=== PATIENT | female | born 1980 | race Caucasian/White ===

== ENCOUNTER 2016-12-25 15:47 | Emergency (ER) | payer MEDICARE, MEDICAID ==
[~2016-12-25 15:47] MED LIST: ALBUTEROL0.09 MG/A4 IH; BIRTH CONTROL PILL PO; BUSPIRONE; CLONAZEPAM1 M1 PO; CYCLOBENZAPRINE10 M1 PO; DIFLUCAN150 M1 PO; EFFEXOR XR150 M1 PO; FLEXERIL 1010 MG/TAB PO; FLOVENT DI100 MCG/Ac IH; INCIVEK375 MG PO; KETOROLAC TROME10 MG PO; METRONIDAZOLE500 M1 PO; NAPROXEN220 MG PO; NITROSTAT0.4 MG/TAB SL; NORCO 325 MG-51 TAB PO; ORPHENADRINE C100 MG PO; OXYCODONE HCL10 M1 PO; OXYCONTIN10 M1 PO; PEGASYS180 MCG/0. MR; PROZAC20 M1 PO; RIBAVIRIN200 MG PO; RIBOFLAVIN PO; RIFAMPIN 3300 MG/CAP PO; SEROQUEL25 MG PO; ULTRAM 50MG TAB50 MG PO; ULTRAM50 M1 PO; VALIUM5 M1 PO; ZOLOFT100 MG PO; ZOLOFT25 MG PO; [UNRECOGNIZED DRUG - OTHER] SC; [UNRECOGNIZED DRUG - REMARK]; [UNRECOGNIZED DRUG - REMARK]
[2016-12-25] MEDS ORDERED: NORCO 325 MG-51 TAB PO (19:24)
[2016-12-25 19:30] VITALS: BP 108/74
[2016-12-26] MEDS ORDERED: OMEPRAZOLE D/R20 MG PO (20:17)
== END 2016-12-25 19:32 | disposition home or self-care (01) ==
LOC: ED 15:47
DX: R07.1 Chest pain on breathing (principal); F17.210 Nicotine dependence, cigarettes, uncomplicated; I25.10 Atherosclerotic heart disease of native coronary artery without angina pectoris; Z95.0 Presence of cardiac pacemaker
CPT/HCPCS: J1885

== ENCOUNTER 2016-12-26 17:23 | Emergency (ER) | payer MEDICARE, MEDICAID ==
[2016-12-26] MEDS ORDERED: OMEPRAZOLE D/R20 MG PO (20:17)
[2016-12-26 20:44] VITALS: BP 114/65
== END 2016-12-26 20:44 | disposition home or self-care (01) ==
LOC: ED 17:23
DX: R07.1 Chest pain on breathing (principal); R10.13 Epigastric pain; F17.210 Nicotine dependence, cigarettes, uncomplicated; I25.10 Atherosclerotic heart disease of native coronary artery without angina pectoris; Z95.0 Presence of cardiac pacemaker
CPT/HCPCS: C9113; J1885; J2405

== ENCOUNTER 2017-10-04 05:56 | Emergency (ER) | payer MEDICARE, MEDICAID ==
[~2017-10-04] VITALS: Ht 162.6 cm; Wt 84.1 kg
[~2017-10-04 05:56] MED LIST changes: +AMOXIL500 M1 PO; +NAPROXEN250 M2 PO; +OMEPRAZOLE D/R20 MG PO
[2017-10-04 07:26] LABS: BASO # 0.1 (0.02-0.10); EOS # 0.4 (0.04-0.40); HEMATOCRIT 38.7 % (37.0-47.0); HEMOGLOBIN 13.3 g/dL (12.5-16.0); LYMPH# 3.5 (1.50-4.00); MEAN CELL VOLUME 92 fl (78-100); MEAN CORPUSCULAR HEMOGLOBIN 32 pg (27-31); MEAN CORPUSCULAR HGB CONC 34 g/dL (33-37); MEAN PLATELET VOLUME 8.1 fl (7.4-10.4); PLATELET COUNT 418 K/mm3 (130-400); RED BLOOD COUNT 4.19 M/mm3 (4.10-5.30); RED CELL DISTRIBUTION WIDTH 13.3 % (11.5-14.5); WHITE BLOOD COUNT 17.9 K/mm3 (4.8-10.8)
[2017-10-04 07:29] LABS: MONO # 1.6 (0.20-0.80); NEU # 12.3 (1.40-6.50)
[2017-10-04 08:31] LABS: ERYTHROCYTE SEDIMENTATION RATE 22 mm/hr (0-20)
[2017-10-04 09:08] LABS: URINE APPEARANCE CLOUDY; URINE BILIRUBIN NEGATIVE (NEGATIVE); URINE BLOOD NEGATIVE (NEGATIVE); URINE COLOR YELLOW; URINE GLUCOSE NEGATIVE (NEGATIVE); URINE KETONE 2+ (NEGATIVE); URINE LEUKOCYTE ESTERASE NEGATIVE (NEGATIVE); URINE NITRATE NEGATIVE (NEGATIVE); URINE PROTEIN(semi-quant) NEGATIVE (NEGATIVE); URINE UROBILINOGEN NORMAL (NORMAL); URINE WBC 0-1 /hpf (0-3)
[2017-10-04 09:09] LABS: URINE MUCUS PRESENT (NOT PRESENT)
[2017-10-04] MEDS ORDERED: CYCLOBENZAPRINE10 M1 PO (10:59)
[2017-10-04 11:20] VITALS: BP 132/55
== END 2017-10-04 11:58 | disposition home or self-care (01) ==
LOC: ED 05:56
PROVIDERS: Family Medicine; Nurse Practitioner Family
DX: M54.40 Lumbago with sciatica, unspecified side (principal); Z95.2 Presence of prosthetic heart valve; Z95.0 Presence of cardiac pacemaker; G89.29 Other chronic pain; B19.20 Unspecified viral hepatitis C without hepatic coma; F15.90 Other stimulant use, unspecified, uncomplicated; F12.90 Cannabis use, unspecified, uncomplicated; F11.90 Opioid use, unspecified, uncomplicated
CPT/HCPCS: J1885; J2060; J2360; Q9967

== ENCOUNTER 2017-10-05 04:32 | Emergency (ER) | payer MEDICARE, MEDICAID ==
[~2017-10-05] VITALS: Ht 162.6 cm; Wt 81.8 kg
[2017-10-05 06:14] LABS: HEMATOCRIT 38.1 % (37.0-47.0); HEMOGLOBIN 13.1 g/dL (12.5-16.0); MEAN CELL VOLUME 91 fl (78-100); MEAN CORPUSCULAR HEMOGLOBIN 31 pg (27-31); MEAN CORPUSCULAR HGB CONC 34 g/dL (33-37); MEAN PLATELET VOLUME 8.4 fl (7.4-10.4); PLATELET COUNT 467 K/mm3 (130-400); RED CELL DISTRIBUTION WIDTH 13.2 % (11.5-14.5)
[2017-10-05 06:29] LABS: LYMPHOCYTE 12 % (20-51); MONOCYTE 2 % (3-10); NEUTROPHILS 83 % (42-75)
[2017-10-05 07:24] LABS: CKMB ISOENZYME 6.2 ng/mL (0.6-3.5); TROPONIN-I < 0.03 ng/mL (0.00-0.06)
[2017-10-05 07:34] LABS: ALBUMIN 3.7 g/dL (3.5-5.0); BUN/CREATININE RATIO 42.5 (6.0-26.0); CALCIUM 9.5 mg/dL (8.4-10.2); POTASSIUM 4.4 mmol/L (3.6-5.0); TOTAL PROTEIN 7.2 g/dL (6.3-8.2)
[2017-10-05 08:15] LABS: URINE APPEARANCE HAZY; URINE BILIRUBIN NEGATIVE (NEGATIVE); URINE BLOOD NEGATIVE (NEGATIVE); URINE COLOR YELLOW; URINE GLUCOSE NEGATIVE (NEGATIVE); URINE KETONE 2+ (NEGATIVE); URINE LEUKOCYTE ESTERASE NEGATIVE (NEGATIVE); URINE NITRATE NEGATIVE (NEGATIVE); URINE PROTEIN(semi-quant) TRACE mg/dL (NEGATIVE); URINE UROBILINOGEN NORMAL (NORMAL); URINE WBC 0-1 /hpf (0-3)
[2017-10-05 08:16] LABS: URINE MUCUS PRESENT (NOT PRESENT)
[2017-10-05 15:57] VITALS: BP 139/82
== END 2017-10-05 17:20 | disposition short-term general hospital (02) ==
LOC: ED 04:32
PROVIDERS: Nurse Practitioner Primary Care
DX: M53.3 Sacrococcygeal disorders, not elsewhere classified (principal); D72.829 Elevated white blood cell count, unspecified; Z95.0 Presence of cardiac pacemaker; F15.10 Other stimulant abuse, uncomplicated; M62.830 Muscle spasm of back; F41.9 Anxiety disorder, unspecified; F32.9 Major depressive disorder, single episode, unspecified; B19.20 Unspecified viral hepatitis C without hepatic coma; F17.200 Nicotine dependence, unspecified, uncomplicated; Z91.81 History of falling
CPT/HCPCS: A4353; J1170; J1200; J2930; J3360

== ENCOUNTER 2017-10-22 19:48 | Outpatient (RCR) | payer MEDICARE, MEDICAID ==
[~2017-10-22] VITALS: Ht 162.6 cm; Wt 81.8 kg
[2017-10-22] MEDS ORDERED: ZOFRAN4 M2 PO (20:41)
[2017-10-22] MEDS ORDERED: GABAPENTIN400 M2 PO (20:41)
[2017-10-22 20:45] VITALS: BP 114/73
--- NOTE | 2017-10-22 21:00 | NUR ---
IM injections were given in divided doses in the ventrogluteal and vastuslateralus muscles. Pt tolerated well with no signs of adverse reaction noted prior to discharge. Pt ambulates out of facility to POV with friend.
[2017-10-22 21:02] VITALS: BP 129/56
[2017-10-23 19:22] VITALS: BP 130/80
--- NOTE | 2017-10-23 19:29 | NUR ---
FREQUENT MOVEMENTS OF FACIAL MUSCLES AND EXTREMITIES. HARD TIME HOLDING STILL FOR BP EVEN WHEN PROMPTED FREQUENTLY. ECCHYMOSIS NOTED TO RT CHEEKBONE. PATIENT STATES "I FELL DOWN THE STAIRS. WE HAVE TINY STAIRS."
[2017-10-23] MEDS ORDERED: MIRALAX17 GM PO (19:37)
[2017-10-23] MEDS ORDERED: CYCLOBENZAPRINE10 M1 PO (19:37)
[2017-10-24] MEDS ORDERED: CHANTIX START M1 TAB PO (17:34)
== END 2017-10-23 20:00 | disposition home or self-care (01) ==
LOC: AMSURD 19:48
DX: I33.0 Acute and subacute infective endocarditis (principal); B96.89 Other specified bacterial agents as the cause of diseases classified elsewhere
CPT/HCPCS: J0696; J1580

== ENCOUNTER 2017-10-23 19:35 | Emergency (ER) | payer MEDICARE, MEDICAID ==
[~2017-10-23] VITALS: Ht 162.6 cm; Wt 81.8 kg
[~2017-10-23 19:35] MED LIST changes: +GABAPENTIN400 M2 PO; +ZOFRAN4 M2 PO
[2017-10-23] MEDS ORDERED: CYCLOBENZAPRINE10 M1 PO (19:37)
[2017-10-23] MEDS ORDERED: MIRALAX17 GM PO (19:37)
[2017-10-23 21:42] LABS: BASO # 0.1 (0.02-0.10); EOS # 0.1 (0.04-0.40); EOS % 0.7 % (1.0-5.0); LYMPH# 2.7 (1.50-4.00); MEAN CELL VOLUME 94 fl (78-100); MEAN CORPUSCULAR HEMOGLOBIN 31 pg (27-31); MEAN CORPUSCULAR HGB CONC 33 g/dL (33-37); MEAN PLATELET VOLUME 8.6 fl (7.4-10.4); PLATELET COUNT 346 K/mm3 (130-400); RED BLOOD COUNT 3.18 M/mm3 (4.10-5.30); RED CELL DISTRIBUTION WIDTH 13.2 % (11.5-14.5); WHITE BLOOD COUNT 14.3 K/mm3 (4.8-10.8)
[2017-10-23 21:46] LABS: MONO # 1.7 (0.20-0.80); NEU # 9.8 (1.40-6.50)
[2017-10-23 22:45] LABS: ERYTHROCYTE SEDIMENTATION RATE 40 mm/hr (0-20)
[2017-10-23 23:04] LABS: URINE APPEARANCE HAZY; URINE BILIRUBIN NEGATIVE (NEGATIVE); URINE BLOOD TRACE (NEGATIVE); URINE COLOR YELLOW; URINE GLUCOSE NEGATIVE (NEGATIVE); URINE KETONE 1+ (NEGATIVE); URINE LEUKOCYTE ESTERASE NEGATIVE (NEGATIVE); URINE NITRATE NEGATIVE (NEGATIVE); URINE PROTEIN(semi-quant) TRACE mg/dL (NEGATIVE); URINE UROBILINOGEN NORMAL (NORMAL)
[2017-10-23 23:05] LABS: URINE MUCUS PRESENT (NOT PRESENT)
[2017-10-23 23:45] VITALS: BP 119/70
[2017-10-24] MEDS ORDERED: CHANTIX START M1 TAB PO (17:34)
== END 2017-10-23 23:45 | disposition home or self-care (01) ==
LOC: ED 19:35
PROVIDERS: Family Medicine
DX: M54.5 Low back pain (principal); Z95.2 Presence of prosthetic heart valve; Z95.0 Presence of cardiac pacemaker; Z86.19 Personal history of other infectious and parasitic diseases; M25.552 Pain in left hip; M53.3 Sacrococcygeal disorders, not elsewhere classified; M54.10 Radiculopathy, site unspecified; I38 Endocarditis, valve unspecified; F15.10 Other stimulant abuse, uncomplicated; L27.0 Generalized skin eruption due to drugs and medicaments taken internally; T36.5X5A Adverse effect of aminoglycosides, initial encounter; T36.1X5A Adverse effect of cephalosporins and other beta-lactam antibiotics, initial encounter; F99 Mental disorder, not otherwise specified; F41.9 Anxiety disorder, unspecified
CPT/HCPCS: A4353

== ENCOUNTER 2017-10-24 17:20 | Emergency (ER) | payer MEDICARE, MEDICAID ==
[~2017-10-24 17:20] MED LIST changes: +MIRALAX17 GM PO
[2017-10-24] MEDS ORDERED: CHANTIX START M1 TAB PO (17:34)
[2017-10-24 18:41] LABS: HEMOGLOBIN 10.7 g/dL (12.5-16.0); MEAN CELL VOLUME 94 fl (78-100); MEAN CORPUSCULAR HEMOGLOBIN 31 pg (27-31); MEAN CORPUSCULAR HGB CONC 33 g/dL (33-37); MEAN PLATELET VOLUME 8.9 fl (7.4-10.4); PLATELET COUNT 340 K/mm3 (130-400); RED BLOOD COUNT 3.41 M/mm3 (4.10-5.30); RED CELL DISTRIBUTION WIDTH 13.2 % (11.5-14.5); WHITE BLOOD COUNT 19.3 K/mm3 (4.8-10.8)
[2017-10-24 18:49] LABS: LYMPHOCYTE 6 % (20-51); MONOCYTE 4 % (3-10); NEUTROPHILS 90 % (42-75)
[2017-10-24 18:54] LABS: ALBUMIN 3.9 g/dL (3.5-5.0); ALT/SGPT 413 U/L (9-52); BUN/CREATININE RATIO 33.7 (6.0-26.0); CALCIUM 9.1 mg/dL (8.4-10.2); CARBON DIOXIDE 21 mmol/L (22-30); SODIUM 135 mmol/L (137-145); TOTAL BILIRUBIN 2.4 mg/dL (0.2-1.3)
[2017-10-24 18:55] LABS: AST-SGOT > 850 U/L (14-36); GLUCOSE 48 mg/dL (65-105)
[2017-10-24 22:09] VITALS: BP 122/75
== END 2017-10-24 22:18 ==
LOC: ED 17:20
PROVIDERS: Family Medicine
DX: I38 Endocarditis, valve unspecified (principal); R74.0 Nonspecific elevation of levels of transaminase and lactic acid dehydrogenase [LDH]; F15.10 Other stimulant abuse, uncomplicated; G25.9 Extrapyramidal and movement disorder, unspecified; R21 Rash and other nonspecific skin eruption; Z95.3 Presence of xenogenic heart valve; G89.29 Other chronic pain; M54.9 Dorsalgia, unspecified; Z86.19 Personal history of other infectious and parasitic diseases

== ENCOUNTER 2017-11-05 10:24 | Inpatient (IN) | payer MEDICARE, MEDICAID ==
[~2017-11-05] VITALS: Ht 162.6 cm; Wt 80.7 kg
[~2017-11-05 10:24] MED LIST changes: +CHANTIX START M1 TAB PO
[2017-11-05] MEDS ORDERED: TYLENOL 325MG325 MG PO (12:09)
[2017-11-05] MEDS ORDERED: RT ALBUTEROL CC18 GM IH (12:10)
[2017-11-05 12:16] VITALS: BP 126/76
[2017-11-05] MEDS ORDERED: ROCEPHIN 2 G2 G/VIAL IJ (12:32)
[2017-11-05] MEDS ORDERED: CYCLOBENZAPRINE10 M1 PO (12:32)
[2017-11-05] MEDS ORDERED: VOLTAREN GEL1% TP (12:33)
[2017-11-05] MEDS ORDERED: FLUOXETINE HCL20 MG PO (12:33)
[2017-11-05] MEDS ORDERED: GABAPENTIN100 MG PO (12:34)
[2017-11-05] MEDS ORDERED: LIDOCAINE1 EACH TP (12:35)
[2017-11-05] MEDS ORDERED: GENTAMICIN I40 MG/ML IV (12:35)
[2017-11-05] MEDS ORDERED: NYSTATIN POWDER30 GM TOP (12:36)
[2017-11-05] MEDS ORDERED: MELATONIN5 M3 PO (12:36)
[2017-11-05] MEDS ORDERED: DOCUSATE SODIUM PO (12:41)
[2017-11-05] MEDS ORDERED: SEROQUEL XR200 MG PO (12:41)
[2017-11-05] MEDS ORDERED: GAS RELIEF 8080 MG PO (12:42)
[2017-11-05 18:03] VITALS: BP 118/68
[2017-11-05 18:33] VITALS: BP 118/68
[2017-11-06 06:25] VITALS: BP 113/60
[2017-11-06 18:07] VITALS: BP 126/72
[2017-11-07 06:37] VITALS: BP 111/58
[2017-11-07 18:06] VITALS: BP 122/56
[2017-11-08 06:31] VITALS: BP 116/72
[2017-11-08 12:50] LABS: EOS # 0.2 (0.04-0.40); EOS % 1.2 % (1.0-5.0); HEMATOCRIT 33.7 % (37.0-47.0); HEMOGLOBIN 10.8 g/dL (12.5-16.0); LYMPH# 1.7 (1.50-4.00); MEAN CELL VOLUME 99 fl (78-100); MEAN CORPUSCULAR HEMOGLOBIN 32 pg (27-31); MEAN CORPUSCULAR HGB CONC 32 g/dL (33-37); MEAN PLATELET VOLUME 8.2 fl (7.4-10.4); MONO # 1.4 (0.20-0.80); PLATELET COUNT 289 K/mm3 (130-400); RED BLOOD COUNT 3.41 M/mm3 (4.10-5.30); RED CELL DISTRIBUTION WIDTH 14.1 % (11.5-14.5); WHITE BLOOD COUNT 12.8 K/mm3 (4.8-10.8)
[2017-11-08 12:53] LABS: NEU # 9.5 (1.40-6.50)
[2017-11-08 12:59] LABS: ALBUMIN 3.7 g/dL (3.5-5.0); BUN/CREATININE RATIO 35.2 (6.0-26.0); CALCIUM 8.8 mg/dL (8.4-10.2); POTASSIUM 4.4 mmol/L (3.6-5.0); TOTAL BILIRUBIN 0.6 mg/dL (0.2-1.3); TOTAL PROTEIN 6.9 g/dL (6.3-8.2)
[2017-11-08 18:21] VITALS: BP 117/66
[2017-11-09 05:58] LABS: EOS # 0.2 (0.04-0.40); EOS % 1.8 % (1.0-5.0); HEMATOCRIT 32.1 % (37.0-47.0); HEMOGLOBIN 10.3 g/dL (12.5-16.0); LYMPH# 1.3 (1.50-4.00); MEAN CELL VOLUME 100 fl (78-100); MEAN CORPUSCULAR HEMOGLOBIN 32 pg (27-31); MEAN CORPUSCULAR HGB CONC 32 g/dL (33-37); MEAN PLATELET VOLUME 8.5 fl (7.4-10.4); MONO # 0.9 (0.20-0.80); PLATELET COUNT 275 K/mm3 (130-400); RED BLOOD COUNT 3.21 M/mm3 (4.10-5.30); RED CELL DISTRIBUTION WIDTH 14.3 % (11.5-14.5); WHITE BLOOD COUNT 8.4 K/mm3 (4.8-10.8)
[2017-11-09 06:40] VITALS: BP 117/61
[2017-11-09 17:38] VITALS: BP 111/64
[2017-11-10 06:36] VITALS: BP 102/53
[2017-11-10 18:47] VITALS: BP 114/68
[2017-11-11 06:22] VITALS: BP 115/60
[2017-11-11 06:30] LABS: ALBUMIN 3.3 g/dL (3.5-5.0); BUN/CREATININE RATIO 36.9 (6.0-26.0); POTASSIUM 4.8 mmol/L (3.6-5.0); TOTAL BILIRUBIN 0.5 mg/dL (0.2-1.3); TOTAL PROTEIN 6.4 g/dL (6.3-8.2)
[2017-11-11 18:19] VITALS: BP 111/42
[2017-11-12 06:25] VITALS: BP 100/48
[2017-11-12 18:32] VITALS: BP 117/61
[2017-11-13 06:35] VITALS: BP 102/60
[2017-11-13 18:21] VITALS: BP 114/55
[2017-11-14 06:23] VITALS: BP 109/63
[2017-11-14 18:14] VITALS: BP 109/71
[2017-11-15 06:21] VITALS: BP 114/63
[2017-11-15 12:55] LABS: EOS # 0.2 (0.04-0.40); HEMATOCRIT 34.2 % (37.0-47.0); HEMOGLOBIN 10.7 g/dL (12.5-16.0); LYMPH# 1.4 (1.50-4.00); MEAN CELL VOLUME 99 fl (78-100); MEAN CORPUSCULAR HEMOGLOBIN 31 pg (27-31); MEAN CORPUSCULAR HGB CONC 31 g/dL (33-37); MEAN PLATELET VOLUME 8.2 fl (7.4-10.4); MONO # 0.8 (0.20-0.80); NEU # 5.5 (1.40-6.50); PLATELET COUNT 275 K/mm3 (130-400); RED BLOOD COUNT 3.46 M/mm3 (4.10-5.30); RED CELL DISTRIBUTION WIDTH 13.9 % (11.5-14.5)
[2017-11-15 13:17] LABS: ALBUMIN 3.3 g/dL (3.5-5.0); BUN/CREATININE RATIO 30.4 (6.0-26.0); CALCIUM 8.9 mg/dL (8.4-10.2); POTASSIUM 4.5 mmol/L (3.6-5.0); TOTAL BILIRUBIN 0.6 mg/dL (0.2-1.3); TOTAL PROTEIN 6.4 g/dL (6.3-8.2)
[2017-11-15 18:06] VITALS: BP 115/66
[2017-11-16 06:35] VITALS: BP 111/66
[2017-11-16 13:53] LABS: URINE APPEARANCE CLEAR; URINE BILIRUBIN NEGATIVE (NEGATIVE); URINE BLOOD 50 ery/uL (NEGATIVE); URINE COLOR YELLOW; URINE GLUCOSE NEGATIVE (NEGATIVE); URINE KETONE NEGATIVE (NEGATIVE); URINE NITRATE NEGATIVE (NEGATIVE); URINE PROTEIN(semi-quant) TRACE mg/dL (NEGATIVE); URINE UROBILINOGEN NORMAL (NORMAL)
[2017-11-16 13:54] LABS: URINE LEUKOCYTE ESTERASE NEGATIVE (NEGATIVE); URINE WBC 0-1 /hpf (0-3)
[2017-11-16 18:16] VITALS: BP 111/70
[2017-11-17 06:20] VITALS: BP 109/61
[2017-11-17 19:19] VITALS: BP 97/57
[2017-11-18 06:30] LABS: ALBUMIN 3.6 g/dL (3.5-5.0); BUN/CREATININE RATIO 24.8 (6.0-26.0); CALCIUM 8.8 mg/dL (8.4-10.2); POTASSIUM 4.5 mmol/L (3.6-5.0); TOTAL BILIRUBIN 0.5 mg/dL (0.2-1.3); TOTAL PROTEIN 6.8 g/dL (6.3-8.2)
[2017-11-18 07:08] VITALS: BP 139/87
[2017-11-18 18:50] VITALS: BP 123/72
[2017-11-19 06:09] VITALS: BP 124/85
[2017-11-19] MEDS ORDERED: LIDOCAINE HC20 MG/M1 MM (07:24)
[2017-11-19] MEDS ORDERED: ORPHENADRINE C100 MG PO (07:28)
[2017-11-19] MEDS ORDERED: GABAPENTIN100 MG PO (15:07)
[2017-11-19] MEDS ORDERED: SEROQUEL XR200 MG PO (15:07)
[2017-11-19] MEDS ORDERED: LIDOCAINE1 EACH TP (15:07)
[2017-11-19 15:14] VITALS: BP 133/77
== END 2017-11-19 15:26 | disposition home or self-care (01) | DRG 289 ==
LOC: MED/SURG 10:24
PROVIDERS: Nurse Practitioner Primary Care; ADMIT Physician Assistant
DX: I33.0 Acute and subacute infective endocarditis (principal); N17.9 Acute kidney failure, unspecified; B95.5 Unspecified streptococcus as the cause of diseases classified elsewhere; B37.3 Candidiasis of vulva and vagina; B18.2 Chronic viral hepatitis C; R53.81 Other malaise; K02.9 Dental caries, unspecified; Z95.2 Presence of prosthetic heart valve
CPT/HCPCS: J0696; J1580; J1885; J2360; J7060

== ENCOUNTER → 2018-04-21 | Outpatient (CLI) | payer MEDICARE, MEDICAID ==
[~2018-04-21] MED LIST changes: +DOCUSATE SODIUM PO; +FLUOXETINE HCL20 MG PO; +GABAPENTIN100 MG PO; +GAS RELIEF 8080 MG PO; +GENTAMICIN I40 MG/ML IV; +LIDOCAINE HC20 MG/M1 MM; +LIDOCAINE1 EACH TP; +MELATONIN5 M3 PO; +NYSTATIN POWDER30 GM TOP; +ROCEPHIN 2 G2 G/VIAL IJ; +RT ALBUTEROL CC18 GM IH; +SEROQUEL XR200 MG PO; +TYLENOL 325MG325 MG PO; +VOLTAREN GEL1% TP
[2018-04-21 13:53] LABS: HEMOGLOBIN 17.4 g/dL (12.5-16.0); MEAN PLATELET VOLUME 8.7 fl (7.4-10.4); RED BLOOD COUNT 5.53 M/mm3 (4.10-5.30); RED CELL DISTRIBUTION WIDTH 13.5 % (11.5-14.5); WHITE BLOOD COUNT 11.6 K/mm3 (4.8-10.8)
[2018-04-21 14:05] LABS: BUN/CREATININE RATIO 23.9 (6.0-26.0); CALCIUM 9.5 mg/dL (8.4-10.2); POTASSIUM 4.3 mmol/L (3.6-5.0)
== END ==
LOC: LAB 13:35
DX: I44.1 Atrioventricular block, second degree (principal)

== ENCOUNTER → 2018-05-20 | Outpatient (CLI) | payer MEDICARE, MEDICAID ==
[2018-05-20 11:22] LABS: CLUE CELLS PRESENT (Not Observd)
== END ==
LOC: LAB 09:47
PROVIDERS: Nurse Practitioner Family
DX: N76.0 Acute vaginitis (principal)
CPT/HCPCS: Q0111

== ENCOUNTER → 2018-05-26 | Outpatient (CLI) | payer MEDICARE, MEDICAID ==
[2018-05-26 12:10] LABS: URINE APPEARANCE HAZY; URINE COLOR YELLOW
[2018-05-26 12:11] LABS: URINE BILIRUBIN NEGATIVE (NEGATIVE); URINE BLOOD 250 ery/uL (NEGATIVE); URINE GLUCOSE NEGATIVE (NEGATIVE); URINE KETONE NEGATIVE (NEGATIVE); URINE LEUKOCYTE ESTERASE TRACE (NEGATIVE); URINE NITRATE NEGATIVE (NEGATIVE); URINE PROTEIN(semi-quant) TRACE mg/dL (NEGATIVE); URINE UROBILINOGEN NORMAL (NORMAL)
== END ==
LOC: LAB 11:14
PROVIDERS: Nurse Practitioner Family
DX: R42 Dizziness and giddiness (principal)

== ENCOUNTER → 2018-06-03 | Outpatient (CLI) | payer MEDICARE, MEDICAID ==
[2018-06-03 14:02] LABS: CLUE CELLS PRESENT (Not Observd)
== END ==
LOC: LAB 13:41
PROVIDERS: Physician Assistant
DX: N76.0 Acute vaginitis (principal)
CPT/HCPCS: Q0111

== ENCOUNTER 2018-07-06 21:09 | Emergency (ER) | payer MEDICARE, MEDICAID ==
[2018-07-06 21:55] VITALS: BP 123/80
== END 2018-07-06 21:55 | disposition home or self-care (01) ==
LOC: ED 21:09
DX: M25.512 Pain in left shoulder (principal); G89.29 Other chronic pain; Z95.0 Presence of cardiac pacemaker; F17.210 Nicotine dependence, cigarettes, uncomplicated; Z79.899 Other long term (current) drug therapy; T43.596A Underdosing of other antipsychotics and neuroleptics, initial encounter; F41.9 Anxiety disorder, unspecified; F32.9 Major depressive disorder, single episode, unspecified

== ENCOUNTER → 2018-11-10 | Outpatient (CLI) | payer MEDICARE, MEDICAID | LOC: RAD 10:50 | DX: R06.2 Wheezing (principal); Z95.0 Presence of cardiac pacemaker ==